=== PATIENT | female | born 1985 | race Caucasian/White ===

== ENCOUNTER 2017-12-31 00:13 | Emergency (ER) | payer BC, OTHER ==
[~2017-12-31] VITALS: Ht 165.1 cm; Wt 99.8 kg
[~2017-12-31 00:13] MED LIST: HYDR2.5C39 TOP; METR500T PO; NITR0.4O RE; NOR10T PO; VENL150C
[2017-12-31 02:47] LABS: Basophils # (auto) 0.2 uL; Eosinophils # (auto) 0 uL; Eosinophils % (auto) 0.1 % (0.0-7.0); Hemoglobin 11.1 g/dL (12.2-16.2); Lymphocytes # (auto) 2.3 uL
[2017-12-31 02:49] LABS: Basophils % (auto) 0.9 % (0.0-2.0); Hematocrit 35.2 % (36.0-46.0); Lymphocytes % (auto) 10.1 % (10.0-50.0); Mean Corpuscular Hgb Conc. 31.6 g/dL (32.0-36.0); Mean Corpuscular Volume 72.9 fL (80.0-100.0); Monocytes # (auto) 0.8 uL; Monocytes % (auto) 3.6 % (0.0-12.0); Neutrophils # (auto) 19.8 uL; Neutrophils % (auto) 85.3 % (37.0-80.0); Platelet Count (auto) 286 10^3/uL (140-450); Red Blood Cells 4.83 10^6/uL (4.0-5.20); Red Cell Distribution Width 16.9 % (11.8-14.3); White Blood Cell 23.3 10^3/uL (4.4-10.8)
[2017-12-31 03:20] LABS: Albumin 3.8 g/dL (3.4-5.0); Calcium 8.8 mg/dL (8.5-10.1); Potassium 3.2 mmol/L (3.5-5.1)
[2017-12-31 03:23] LABS: BUN/Creatinine Ratio 15.5
[2017-12-31 03:26] LABS: Bilirubin, Total 0.4 mg/dL (0.2-1.0); Total Protein 7.8 g/dL (6.4-8.2)
[2017-12-31 03:45] VITALS: BP 137/77
== END 2017-12-31 04:36 | disposition home or self-care (01) ==
LOC: ER 00:13
DX: L98.9 Disorder of the skin and subcutaneous tissue, unspecified (principal); Z88.6 Allergy status to analgesic agent
CPT/HCPCS: 36415; 70490; 80053; 85025

== ENCOUNTER 2018-04-12 10:27 | Emergency (ER) | payer BC ==
[~2018-04-12] VITALS: Ht 162.6 cm; Wt 90.7 kg
[~2018-04-12 10:27] MED LIST changes: -VENL150C; +VENL150C2
[2018-04-12 10:35] VITALS: BP 140/75
[2018-04-12] MEDS ORDERED: LIDOCAINE 1% HCL (LOCAL ANESTH.) INJ 20ML MDV IJ ONE (11:00)
[2018-04-12] MEDS ORDERED: LIDOCAINE 1% (LOCAL ANESTH.) PF 5ml SDV ONE ×2 (11:01→11:07)
[2018-04-12] MEDS ORDERED: cefTRIAXone SOD 1,000 MG VL ONE (11:28)
[2018-04-12] MEDS ORDERED: cefTRIAXone SOD 1,000 MG VL IM ONE (11:30)
== END 2018-04-12 11:40 | disposition home or self-care (01) ==
LOC: ER 10:27
DX: L02.412 Cutaneous abscess of left axilla (principal)
CPT/HCPCS: 10060; 87205; 96372; 99283; J0696

== ENCOUNTER 2018-06-07 09:41 | Emergency (ER) | payer BC ==
[~2018-06-07] VITALS: Ht 162.6 cm; Wt 117.9 kg
[2018-06-07 09:48] VITALS: BP 151/91
== END 2018-06-07 10:33 | disposition home or self-care (01) ==
LOC: ER 09:41
DX: K64.4 Residual hemorrhoidal skin tags (principal); L98.9 Disorder of the skin and subcutaneous tissue, unspecified; F17.210 Nicotine dependence, cigarettes, uncomplicated; F12.10 Cannabis abuse, uncomplicated; Z88.6 Allergy status to analgesic agent

== ENCOUNTER 2018-06-26 13:27 | Emergency (ER) | payer BC ==
[~2018-06-26] VITALS: Ht 165.1 cm; Wt 117.9 kg
[2018-06-26 13:58] VITALS: BP 123/67
== END 2018-06-26 15:35 | disposition home or self-care (01) ==
LOC: ER 13:27
DX: K62.89 Other specified diseases of anus and rectum (principal); B37.0 Candidal stomatitis; F12.10 Cannabis abuse, uncomplicated; F17.210 Nicotine dependence, cigarettes, uncomplicated; F41.9 Anxiety disorder, unspecified; Z88.6 Allergy status to analgesic agent